=== PATIENT | male | born 1975 | race Caucasian/White ===

== ENCOUNTER 2018-01-01 04:56 | Emergency (ER) | payer OTHER ==
[~2018-01-01] VITALS: Ht 185.4 cm; Wt 98.4 kg
[2018-01-01] MEDS ORDERED: NOHOMEMEDICATIONS (05:08)
[2018-01-01] MEDS ORDERED: BACTRIM DS TAB1 EACH PO (05:23)
[2018-01-01] MEDS ORDERED: KEFLEX500 M1 PO (05:23)
[2018-01-01] MEDS ORDERED: NORCO 5-325 TA1 EACH PO (05:23)
[2018-01-01 05:41] VITALS: BP 130/60
== END 2018-01-01 05:30 | disposition home or self-care (01) ==
LOC: M.ERS 04:56
DX: L03.011 Cellulitis of right finger (principal); Z88.8 Allergy status to other drugs, medicaments and biological substances